=== PATIENT | male | born 1955 | race Caucasian/White ===

== ENCOUNTER 2023-05-02 16:22 | Observation (INO) ==
--- NOTE | 2023-05-02 16:26 | ED Triage Note ---
Date of Service May 02, 2023 History of Present Illness This patient was briefly evaluated while in triage. An abbreviated physical exam was performed. This patient is a 68-year-old Male who presents to the ED for evaluation of lightheaded, and left shoulder/chest pain since 1200 worse with walking pressure in abdomen slight SOB on and off x 5 days Physical Exam GENERAL: NAD CARDIOVASCULAR: RRR RESPIRATORY: CTA ABDOMEN: BS x 4. Nontender to palpation. Initial orders for labs and / or imaging were placed and patient was placed in the waiting area until a bed is available. Please see further documentation for the full ED course. MDM / Impression Impression Impression: Chest pain, Elevated troponin, Acute hyponatremia, Abnormal ECG
[2023-05-02] MEDS ORDERED: ASPIRIN CHEW 324 MG PO STA (16:27)
--- NOTE | 2023-05-02 17:32 | XRay Report ---
XR chest 2V PA/lateral CLINICAL HISTORY: Chest pain, nonspecific COMPARISON STUDY: Chest radiograph October 16, 2020. FINDINGS: Lung volumes are normal. Lungs are clear. There is no pneumothorax or pleural effusion. Car diac size is stable. Mediastinal contours are normal. There is no evidence for pulmonary edema. IMPRESSION: No acute cardiopulmonary findings. No change in appearance of the chest. ACT 112: Negative or not required by law. Electronically signed by: Morteza Larson M.D. 05/02/2023 5:31 PM
[2023-05-02 18:11] LABS: Basophils # (auto) 0.05 K/uL (0.00-0.20); Basophils % (auto) 0.5 %; Eosinophils # (auto) 0.29 K/uL (0.00-0.50); Eosinophils % (auto) 2.8 %; Hemoglobin 15.6 g/dl (14.0-18.0); Immature Granulocytes # (auto) 0.04 K/uL (0.01-0.20); Immature Granulocytes % (auto) 0.4 %; Lymphocytes % (auto) 16.4 %; Mean Corpuscular Hgb Conc 36.3 g/dL (32.0-36.0); Mean Corpuscular Volume 90.9 fL (80.0-100.0); Mean Platelet Volume 9.1 fL (9.4-12.4); Monocytes % (auto) 6.8 %; Neutrophils # (auto) 7.57 K/uL (1.40-6.50); Neutrophils % (auto) 73.1 %; Platelet Count 198 K/uL (130-400); RDW Standard Deviation 40.3 fL (36.4-46.3); Red Blood Count 4.73 M/uL (4.70-6.10); White Blood Count 10.35 K/ul (4.8-10.8)
[2023-05-02 18:35] LABS: Albumin Globulin Ratio 1.7 (0.9-2); Albumin Level 4.7 gm/dl (3.4-5.0); BUN Creatinine Ratio 15.3 (10-20); Bilirubin,Total 0.6 mg/dl (0.2-1.0); Est GFR (Non-African American) 88.9 ml/min; Globulin 2.7 gm/dl (2.5-4.0); Potassium 4.3 mmol/L (3.5-5.1); Total Protein 7.4 gm/dl (6.0-8.3)
[2023-05-02 18:40] LABS: Troponin I High Sensitivity 101.4 pg/ml (0-20)
[2023-05-02 18:45] LABS: Partial Thromboplastin Time 27.9 Seconds (21.0-31.0); Prothrombin Time 10.9 Seconds (9.0-12.0)
[2023-05-02] MEDS ORDERED: NITROGLYCERIN 2% OINTMENT 30GM TUBE EXT STA (19:05)
--- NOTE | 2023-05-02 19:05 | Emergency Department Note ---
Impression & Plan Chest pain, Elevated troponin, Acute hyponatremia, Abnormal ECG ED Provider Note INFORMANT: Patient ED PROVIDER(S): Heath Maldonado MD CHIEF COMPLAINT: Chest pain PLAN: Disposition: Admitted Outpatient prescription management: none Referral: None MEDICAL DECISION MAKING: Patient was in because of exertional chest pain. Work-up was initiated. He was found to have an unremarkable CBC and chemistry panel except for hyponatremia. Patient has no history of the same. He also was noted to have an unremarkable ECG but elevated cardiac troponin. In light of his exertional chest pain this is concerning. Patient had already taken aspirin today. He was mildly hypertensive. Nitropaste was ordered. Further management in the hospital will be necessary. Patient's chest x-ray was unremarkable. Consultation was made with Dr. Tirso Davis, [facility] hospitalist service. Case was discussed and d iagnostics were reviewed. Patient was evaluated in the ER and admitted for further management. We did discuss heparinization and he would like to see the patient first for management and further treatment. 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 Triage Nursing notes: reviewed and agree them. Vital Signs: reviewed and remarkable for no significant abnormalities Additional History obtained from: none Chronic Medical/Social Conditions affecting care: none Prior /Outside records reviewed: none Differential Diagnosis: Cardiac ischemia, aortic dissection, pulmonary embolism, pneumothorax, pneumonia, pericarditis, myocarditis, esophageal rupture, GERD, cholecystitis, pancreatitis, musculoskeletal, as well as other pathologies. Diagnostics, independently interpreted by me: ECG: Twelve-lead ECG reveals a normal sinus rhythm at 89 bpm. Inferior infarct and anterior infarct present. When compared to 16 October 2020 the inferior changes are new. No ST elevation.. Cardiac Monitoring: Cardiac monitoring ordered by me: The patient was placed on continuous cardiac monitoring and observed. It revealed a normal sinus rhythm at 77 beats per minute without ectopy or evidence of dysrhythmia. Medical decision rules: none Imaging studies: Chest x-ray. Findings: A chest x-ray was performed and revealed no pneumothorax, effusion, infiltrate, pulmonary edema, free air under the diaphragm, or wide mediastinum. Impression: No acute disease. HPI: The patient is a 68-year-old male who arrives for evaluation of exertional chest pain. Patient notes this is a going on for a few days. He noted some lightheadedness as well as pain going into the left shoulder and arm. Symptoms worsen with walking and are better with rest. He notes a discomfort in the stomach and some shortness of breath only with exertion. Currently he does not have any pain. He has no cardiac history. He did take 6 baby aspirin today. Pt denies LOC, headache, fevers, chills, diaphoresis, visual changes, neck pain, nausea, vomiting, abdominal pain, back pain, melena, hematochezia, urinary symptoms, numbness, weakness, lymphadenopathy, rash, or other complaints. PAST MEDICAL HISTORY: See Below, patient denies cardiac history. Mild hypertension PAST SURGICAL HISTORY: See Below, SOCIAL HISTORY: See Below, non-smoker HOME MEDICATIONS: See Below ALLERGIES: See Below VITALS: See Below PHYSICAL EXAMINATION: GENERAL: Awake, alert, well-appearing, in no distress HENT: Normocephalic, atraumatic. Oropharynx unremarkable. EYES: Normal conjunctiva. Sclera non-icteric. NECK: Inspection normal. Non-tender. Supple. No nuchal rigidity. FROM. No masses. RESPIRATORY: Clear to auscultation. No wheezes. No rales. Normal respiratory effort. CARDIAC: Normal rate. Normal rhythm. No murmurs. No rubs. Extremities warm and well perfused. Pulses equal. No JVD. GI: Soft, non-distended. No tenderness to palpation. No rebound or guarding. No masses. RECTAL: Deferred. MUSCULOSKELETAL: Atraumatic. Chest examination reveals no tenderness. The back is symmetrical on inspection without obvious abnormality. There is no CVA tenderness to palpation. No joint edema. LOWER EXTREMITIES: Calves are equal size bilaterally and non-tender. No edema. No discoloration. NEURO: Normal sensorium. No sensory or motor deficits noted. SKIN: No rash or jaundice noted. PROCEDURES: none CRITICAL CARE: none OBSERVATION NOTE: none Past Med/Surg History Medical History Waterman's palsy Obesity (BMI 35.0-39.9 without comorbidity) Social History Smoking Status: Never smoker Preferred Language: Slovak Current Living Situation: Family current occupational status: employed Feels Safe at Home: Yes Allergies Allergies Allergy/AdvReac Type Severity Reaction Status Date / Time No Known Allergies Allergy Mild Unverified 05/02/23 19:22 Home Meds Home Medications Medication Instructions Recorded Confirmed cholecalciferol (vitamin D3) 50 50 mcg PO DAILY 05/02/23 05/02/23 mcg (2,000 unit) capsule (Vitamin D3) [id number] 1 cap PO DAILY 05/02/23 05/02/23 oil 350 mg- 400 mg capsule Results & Data (ED) Vital Signs Vital Signs - 24 hr 05/02/23 16:24 05/02/23 18:54 05/02/23 18:54 Temperature 36.5 C Temperature Source Temporal Artery Scan Pulse Rate 95 H Pulse Rate [Apical] 88 Pulse Rhythm Regular Respiratory Rate 20 25 H Respiratory Effort / Characteristics Non-Labored Spontaneous Respiratory Depth Normal Blood Pressure 158/88 H Blood Pressure [Left Arm] 169/92 H Blood Pressure Mean 111 Blood Pressure Mean [Left Arm] 117 Blood Pressure Position [Left Arm] Pulse Oximetry 97 97 97 Oxygen Delivery Method Room Air Room Air Room Air Sepsis Recent Fever Within 48 Hours No Sepsis New/Unexplained Change in Mental Status No Sepsis Action Taken by Nursing No Action Required 05/02/23 18:54 05/02/23 18:56 05/02/23 18:54 Temperature Temperature Source Pulse Rate 86 Pulse Rate [Apical] Pulse Rhythm Respiratory Rate Respiratory Effort / Characteristics SOB on Exertion Respiratory Depth Blood Pressure Blood Pressure [Left Arm] Blood Pressure Mean Blood Pressure Mean [Left Arm] Blood Pressure Position [Left Arm] Pulse Oximetry 97 Oxygen Delivery Method Room Air Sepsis Recent Fever Within 48 Hours Sepsis New/Unexplained Change in Mental Status Sepsis Action Taken by Nursing 05/02/23 20:00 Temperature Temperature Source Pulse Rate Pulse Rate [Apical] 77 Pulse Rhythm Respiratory Rate 18 Respiratory Effort / Characteristics Respiratory Depth Blood Pressure Blood Pressure [Left Arm] 146/82 H Blood Pressure Mean Blood Pressure Mean [Left Arm] 103 Blood Pressure Position [Left Arm] Sitting Pulse Oximetry 97 Oxygen Delivery Method Room Air Sepsis Recent Fever Within 48 Hours Sepsis New/Unexplained Change in Mental Status Sepsis Action Taken by Nursing Laboratory Data 05/02/23 17:55 05/02/23 17:55 Lab Results 05/02/23 05/02/23 05/02/23 Range/Units 17:55 17:55 17:55 WBC 10.35 (4.8-10.8) K/ul RBC 4.73 (4.70-6.10) M/uL Hgb 15.6 (14.0-18.0) g/dl Hct 43.0 (42.0-52.0) % MCV 90.9 (80.0-100.0) fL MCH 33.0 (25.0-34.0) pg MCHC 36.3 H (32.0-36.0) g/dL RDW Std Deviation 40.3 (36.4-46.3) fL RDW Coeff of Derrick 12.0 (11.5-14.5) % Plt Count 198 (130-400) K/uL MPV 9.1 L (9.4-12.4) fL Immature Gran % (Auto) 0.4 % Neut % (Auto) 73.1 % Lymph % (Auto) 16.4 % [place] % (Auto) 6.8 % Eos % (Auto) 2.8 % Baso % (Auto) 0.5 % Neut # (Auto) 7.57 H (1.40-6.50) K/uL Lymph # (Auto) 1.70 (1.20-3.40) K/uL [place] # (Auto) 0.70 H (0.11-0.59) K/uL Eos # (Auto) 0.29 (0.00-0.50) K/uL Baso # (Auto) 0.05 (0.00-0.20) K/uL Immature Gran # (Auto) 0.04 (0.01-0.20) K/uL PT 10.9 (9.0-12.0) Seconds INR 1.0 (0.9-1.1) APTT 27.9 (21.0-31.0) Seconds PTT Ratio 1.0 Sodium 127 L (136-145) mmol/L Potassium 4.3 (3.5-5.1) mmol/L Chloride 92 L (98-107) mmol/L Carbon Dioxide 28 (21-32) mmol/L Anion Gap 7 (3-11) BUN 13 (6-23) mg/dl Creatinine 0.85 (0.6-1.4) mg/dl Est Cr Clr Drug Dosing 82.0 ml/min Est GFR ( Amer) 103.0 ml/min Est GFR (Non-Af Amer) 88.9 ml/min BUN/Creatinine Ratio 15.3 (10-20) Glucose 111 H (70-99(Fasting)) mg/dl Osmolality (280-300) mOsm/kg Calcium 9.0 (8.6-10.3) mg/dl Magnesium (1.7-2.4) mg/dl Total Bilirubin 0.6 (0.2-1.0) mg/dl AST 20 (13-39) U/L ALT 24 (7-52) U/L Alkaline Phosphatase 52 (34-104) U/L Troponin I High Sens 101.4 H* (0-20) pg/ml Total Protein 7.4 (6.0-8.3) gm/dl Albumin 4.7 (3.4-5.0) gm/dl Globulin 2.7 (2.5-4.0) gm/dl Albumin/Globulin Ratio 1.7 (0.9-2) TSH (0.300-4.500) uIu/ml 05/02/23 05/02/23 Range/Units 17:55 20:04 WBC (4.8-10.8) K/ul RBC (4.70-6.10) M/uL Hgb (14.0-18.0) g/dl Hct (42.0-52.0) % MCV (80.0-100.0) fL MCH (25.0-34.0) pg MCHC (32.0-36.0) g/dL RDW Std Deviation (36.4-46.3) fL RDW Coeff of Derrick (11.5-14.5) % Plt Count (130-400) K/uL MPV (9.4-12.4) fL Immature Gran % (Auto) % Neut % (Auto) % Lymph % (Auto) % [place] % (Auto) % Eos % (Auto) % Baso % (Auto) % Neut # (Auto) (1.40-6.50) K/uL Lymph # (Auto) (1.20-3.40) K/uL [place] # (Auto) (0.11-0.59) K/uL Eos # (Auto) (0.00-0.50) K/uL Baso # (Auto) (0.00-0.20) K/uL Immature Gran # (Auto) (0.01-0.20) K/uL PT (9.0-12.0) Seconds INR (0.9-1.1) APTT (21.0-31.0) Seconds PTT Ratio Sodium (136-145) mmol/L Potassium (3.5-5.1) mmol/L Chloride (98-107) mmol/L Carbon Dioxide (21-32) mmol/L Anion Gap (3-11) BUN (6-23) mg/dl Creatinine (0.6-1.4) mg/dl Est Cr Clr Drug Dosing ml/min Est GFR ( Amer) ml/min Est GFR (Non-Af Amer) ml/min BUN/Creatinine Ratio (10-20) Glucose (70-99(Fasting)) mg/dl Osmolality 269 L (280-300) mOsm/kg Calcium (8.6-10.3) mg/dl Magnesium 1.8 (1.7-2.4) mg/dl Total Bilirubin (0.2-1.0) mg/dl AST (13-39) U/L ALT (7-52) U/L Alkaline Phosphatase (34-104) U/L Troponin I High Sens 136.0 H* D (0-20) pg/ml Total Protein (6.0-8.3) gm/dl Albumin (3.4-5.0) gm/dl Globulin (2.5-4.0) gm/dl Albumin/Globulin Ratio (0.9-2) TSH 9.871 H (0.300-4.500) uIu/ml Administered Medications Sodium Chloride (Nss) 1,000 mls @ 50 mls/hr IV .Q20H ONE Stop: 05/03/23 15:29 Last Admin: 05/02/23 21:12 Dose: 50 mls/hr Documented By: QGV Discontinued Medications Acetaminophen (Acetaminophen 325 Mg Tab) 650 mg PO NOW STA Stop: 05/02/23 20:04 Last Admin: 05/02/23 21:11 Dose: 650 mg Documented By: QGV Aspirin (Aspirin Chew 324 Mg) 324 mg PO NOW STA Stop: 05/02/23 16:28 Last Admin: 05/02/23 19:00 Dose: Not Given Documented By: ML Nitroglycerin (Nitroglycerin 2% Ointment 30gm Tube) 0.5 inch EXT NOW STA Stop: 05/02/23 19:06 Last Admin: 05/02/23 19:12 Dose: 0.5 inch Documented By: QGV Imaging Data Radiologist's Impression: Chest X-Ray 05/02/23 16:27 XR chest 2V PA/lateral CLINICAL HISTORY: Chest pain, nonspecific COMPARISON STUDY: Chest radiograph October 16, 2020. FINDINGS: Lung volumes are normal. Lungs are clear. There is no pneumothorax or pleural effusion. Cardiac size is stable. Mediastinal contours are normal. There is no evidence for pulmonary edema. IMPRESSION: No acute cardiopulmonary findings. No change in appearance of the chest. ACT 112: Negative or not required by law. Electronically signed by: Morteza Larson M.D. 05/02/2023 5:31 PM Discharge Plan Visit Data Chief Complaint: Chest Pain Stated Complaint: HYPERTENSION, DIZZINESS ED Provider: Heath Maldonado Discharge Problem: Chest pain, Elevated troponin, Acute hyponatremia, Abnormal ECG Forms Stand Alone Forms: [facility] Prescriptions Prescriptions: No Action cholecalciferol (vitamin D3) [Vitamin D3] 50 mcg (2,000 unit) Capsule 50 mcg PO DAILY [place] 3 350-400 mg Capsule 1 cap PO DAILY Referrals Referrals: Ella Archuleta MD [Primary Care Provider] -
[2023-05-02] MEDS ORDERED: SODIUM CHLORIDE 0.9% 1,000 ML IV ONE (19:30)
[2023-05-02] MEDS ORDERED: ACETAMINOPHEN 325 MG TAB PO STA (20:03)
--- NOTE | 2023-05-02 20:13 | History & Physical Report ---
Date of Service May 02, 2023 Assessment & Plan (1) Chest pain: Plan: Possibly from elevated BP Possible ACS given troponin elevation and relief with nitroglycerin Hyponatremia, possible SIADH given patient account of daily water intake of 2.5 L hyperlipidemia, patient currently not on maintenance medications SHERMAN status post surgery New onset hypothyroidism past tobacco abuse PCU Aspirin for CAD prevention until ACS ruled out Follow troponin TTE, Cardiology consult Re: Chest pain N.p.o. after midnight in anticipation of ischemic work-up. Careful correction of sodium with NSS, hyponatremia work-up May need fluid restriction May need Nephrology evaluation Initiate levothyroxine, recheck TSH next month DVT prophylaxis. Lovenox subcu Full code Text document was generated using [employer] voice recognition software. It may contain grammatical or spelling errors. Kindly contact undersigned for clarification of any documentation item in question. History of Present Illness Chief Complaint: Chest pain Primary Care Provider: Ella Archuleta MD History obtained from patient and records. Medical history significant for hyperlipidemia, SHERMAN status post surgery, history of Waterman's palsy, past tobacco abuse. Few days ago, patient noted intermittent substernal pressure somewhat squeezing with some radiation to the left arm. Some lightheadedness without headache symptoms. Somewhat worse on exertion. No cough symptoms. Some neck pain. No recent trauma. Patient took some aspirin today with persistent symptoms. Chest discomfort improved with Nitropaste administration at the ER. Highest SBP at the ER 160s. 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 Allergies Allergy/AdvReac Type Severity Reaction Status Date / Time No Known Allergies Allergy Mild Unverified 05/02/23 19:22 Home Medications Medication Instructions Recorded Confirmed Type cholecalciferol (vitamin D3) 50 50 mcg PO DAILY 05/02/23 05/02/23 History mcg (2,000 unit) capsule (Vitamin D3) [id number] 1 cap PO DAILY 05/02/23 05/02/23 History oil 350 mg- 400 mg capsule Past Med/Surg History Medical History Waterman's palsy Obesity (BMI 35.0-39.9 without comorbidity) Social History Smoking Status: Never smoker Preferred Language: Hungarian Communication Ability: Effective Current Living Situation: Family current occupational status: employed Feels Safe at Home: Yes Assistive Devices: None Review of Systems Review of Systems: As per HPI, all other systems reviewed and negative Physical Exam Physical Exam: GENERAL: Comfortable, pleasant, obese, no respiratory distress SKIN: Normal color, warm HEENT: Bespectacled, [place] palpebral conjunctivae, no ptosis, dry buccal mucosa NECK : Supple, short neck, no tenderness CHEST : CTA, no tenderness HEART : RRR, no obvious murmurs ABDOMEN: Some distention, nontender EXTREMITIES : No LE swelling/tenderness, no other conspicuous deformities noted NEUROLOGIC : Coherent, no facial asymmetry, no other gross focality Results & Data Results & Data Vital Signs (Past 12 Hours) Vital Signs Temp Pulse Pulse Resp BP BP Pulse Ox 05/02/23 18:54 86 05/02/23 18:56 97 05/02/23 18:54 97 05/02/23 18:54 88 25 H 169/92 H 97 05/02/23 16:24 36.5 C 95 H 20 158/88 H 97 O2 Del Method 05/02/23 18:54 05/02/23 18:56 Room Air 05/02/23 18:54 Room Air 05/02/23 18:54 Room Air 05/02/23 16:24 Room Air Laboratory Results Laboratory Results WBC 10.35 K/ul (4.8-10.8) 05/02/23 17:55 RBC 4.73 M/uL (4.70-6.10) 05/02/23 17:55 Hgb 15.6 g/dl (14.0-18.0) 05/02/23 17:55 Hct 43.0 % (42.0-52.0) 05/02/23 17:55 MCV 90.9 fL (80.0-100.0) 05/02/23 17:55 MCH 33.0 pg (25.0-34.0) 05/02/23 17:55 MCHC 36.3 g/dL (32.0-36.0) H 05/02/23 17:55 RDW Std Deviation 40.3 fL (36.4-46.3) 05/02/23 17:55 RDW Coeff of Derrick 12.0 % (11.5-14.5) 05/02/23 17:55 Plt Count 198 K/uL (130-400) 05/02/23 17:55 MPV 9.1 fL (9.4-12.4) L 05/02/23 17:55 Immature Gran % (Auto) 0.4 % 05/02/23 17:55 Neut % (Auto) 73.1 % 05/02/23 17:55 Lymph % (Auto) 16.4 % 05/02/23 17:55 [place] % (Auto) 6.8 % 05/02/23 17:55 Eos % (Auto) 2.8 % 05/02/23 17:55 Baso % (Auto) 0.5 % 05/02/23 17:55 Neut # (Auto) 7.57 K/uL (1.40-6.50) H 05/02/23 17:55 Lymph # (Auto) 1.70 K/uL (1.20-3.40) 05/02/23 17:55 [place] # (Auto) 0.70 K/uL (0.11-0.59) H 05/02/23 17:55 Eos # (Auto) 0.29 K/uL (0.00-0.50) 05/02/23 17:55 Baso # (Auto) 0.05 K/uL (0.00-0.20) 05/02/23 17:55 Immature Gran # (Auto) 0.04 K/uL (0.01-0.20) 05/02/23 17:55 PT 10.9 Seconds (9.0-12.0) 05/02/23 17:55 INR 1.0 (0.9-1.1) 05/02/23 17:55 APTT 27.9 Seconds (21.0-31.0) 05/02/23 17:55 PTT Ratio 1.0 05/02/23 17:55 Sodium 127 mmol/L (136-145) L 05/02/23 17:55 Potassium 4.3 mmol/L (3.5-5.1) 05/02/23 17:55 Chloride 92 mmol/L (98-107) L 05/02/23 17:55 Carbon Dioxide 28 mmol/L (21-32) 05/02/23 17:55 Anion Gap 7 (3-11) 05/02/23 17:55 BUN 13 mg/dl (6-23) 05/02/23 17:55 Creatinine 0.85 mg/dl (0.6-1.4) 05/02/23 17:55 Est Cr Clr Drug Dosing 82.0 ml/min 05/02/23 17:55 Est GFR ( Amer) 103.0 ml/min 05/02/23 17:55 Est GFR (Non-Af Amer) 88.9 ml/min 05/02/23 17:55 BUN/Creatinine Ratio 15.3 (10-20) 05/02/23 17:55 Glucose 111 mg/dl (70-99(Fasting)) H 05/02/23 17:55 Calcium 9.0 mg/dl (8.6-10.3) 05/02/23 17:55 Total Bilirubin 0.6 mg/dl (0.2-1.0) 05/02/23 17:55 AST 20 U/L (13-39) 05/02/23 17:55 ALT 24 U/L (7-52) 05/02/23 17:55 Alkaline Phosphatase 52 U/L (34-104) 05/02/23 17:55 Troponin I High Sens 101.4 pg/ml (0-20) H* 05/02/23 17:55 Total Protein 7.4 gm/dl (6.0-8.3) 05/02/23 17:55 Albumin 4.7 gm/dl (3.4-5.0) 05/02/23 17:55 Globulin 2.7 gm/dl (2.5-4.0) 05/02/23 17:55 Albumin/Globulin Ratio 1.7 (0.9-2) 05/02/23 17:55 Impressions Chest X-Ray 05/02/23 16:27 XR chest 2V PA/lateral CLINICAL HISTORY: Chest pain, nonspecific COMPARISON STUDY: Chest radiograph October 16, 2020. FINDINGS: Lung volumes are normal. Lungs are clear. There is no pneumothorax or pleural effusion. Cardiac size is stable. Mediastinal contours are normal. There is no evidence for pulmonary edema. IMPRESSION: No acute cardiopulmonary findings. No change in appearance of the chest. ACT 112: Negative or not required by law. Electronically signed by: Morteza Larson M.D. 05/02/2023 5:31 PM Diagnostic Findings EKG as per my interpretation : Rate 90, NSR, LAD, LAFB, no ischemia
[2023-05-02] MEDS ORDERED: oxyCODONE HCL IR 5 MG TAB (IMMEDIATE RELEASE) PO PRN (20:16)
[2023-05-02] MEDS ORDERED: LORazepam 0.5 MG TAB PO PRN (20:16)
[2023-05-02] MEDS ORDERED: MoRPHine SULFATE 4 MG/ML 1 ML CARP\\VIAL IV PRN (20:16)
[2023-05-02] MEDS ORDERED: PROMETHAZINE HCL 12.5 MG in SODIUM CHLORIDE 0.9% 50 ML IV PRN (20:16)
[2023-05-02 21:13] LABS: Magnesium 1.8 mg/dl (1.7-2.4)
[2023-05-02 21:29] LABS: Thyroid Stimulating Hormone 9.871 uIu/ml (0.300-4.500)
[2023-05-02 22:12] LABS: Appearance Urine Clear (Clear); Bilirubin Urine Negative (Negative); Blood Urine Negative (Negative); Color Urine Yellow; Glucose Urine UA Negative (Negative); Ketones Urine Negative (Negative); Leukocyte Esterase Urine Negative (Negative); Nitrite Urine Negative (Negative); Protein Urine Negative (Negative); Specific Gravity Urine 1.005 (1.000-1.030); Urobilinogen Urine Negative (Negative)
[2023-05-02] MEDS ORDERED: NITROGLYCERIN SL 0.4 MG/TAB TAB SL PRN (22:35)
[2023-05-02] MEDS ORDERED: ACETAMINOPHEN 325 MG TAB PO PRN (22:35)
[2023-05-02 23:39] LABS: T4 Free Thyroxine 0.49 ng/dl (0.61-1.60)
[2023-05-03 01:35] LABS: Basophils # (auto) 0.03 K/uL (0.00-0.20); Basophils % (auto) 0.4 %; Eosinophils # (auto) 0.32 K/uL (0.00-0.50); Eosinophils % (auto) 4.3 %; Hematocrit (blood only) 37.5 % (42.0-52.0); Hemoglobin 13.8 g/dl (14.0-18.0); Immature Granulocytes # (auto) 0.02 K/uL (0.01-0.20); Immature Granulocytes % (auto) 0.3 %; Lymphocytes # (auto) 2.03 K/uL (1.20-3.40); Mean Corpuscular Hemoglobin 33.1 pg (25.0-34.0); Mean Corpuscular Hgb Conc 36.8 g/dL (32.0-36.0); Mean Corpuscular Volume 89.9 fL (80.0-100.0); Mean Platelet Volume 9.3 fL (9.4-12.4); Monocytes # (auto) 0.74 K/uL (0.11-0.59); Monocytes % (auto) 9.9 %; Neutrophils # (auto) 4.37 K/uL (1.40-6.50); Neutrophils % (auto) 58.1 %; Platelet Count 181 K/uL (130-400); RDW Coefficient of Variation 11.9 % (11.5-14.5); RDW Standard Deviation 39.1 fL (36.4-46.3); Red Blood Count 4.17 M/uL (4.70-6.10); White Blood Count 7.51 K/ul (4.8-10.8)
[2023-05-03 01:56] LABS: BUN Creatinine Ratio 13.8 (10-20); Calcium 8.6 mg/dl (8.6-10.3); Chol HDL Ratio 6.5 (0-5); Creatinine Clr Calc Pharmacy 87.2 ml/min; Est GFR (African American) 105.6 ml/min; Est GFR (Non-African American) 91.1 ml/min; Potassium 3.8 mmol/L (3.5-5.1)
[2023-05-03] MEDS ORDERED: MAGNESIUM SULFATE / D5W 1 GM/100 ML BAG IV ONE (01:56)
[2023-05-03 02:07] LABS: Troponin I High Sensitivity 100.2 pg/ml (0-20)
[2023-05-03] MEDS ORDERED: ALBUMIN 25% 25 GM/100 ML VIAL IV ONE (03:08)
--- NOTE | 2023-05-03 08:46 | Hospitalist Progress Note ---
Date of Service May 03, 2023 Assessment & Plan (1) Chest pain: Plan: Possibly from elevated BP Possible ACS given troponin elevation and relief with nitroglycerin NSTEMI PCU Echo LV is normal in size. Mild concentric LVH. The basal septum is thickened and angulated consistent with sigmoid septum. LV wall motion is normal. EF 60 to 65%. There is no significant valvular disease. Cardiology consulted -> plan for cardiac cath Hyponatremia, possible SIADH given patient account of daily water intake of 2.5 L Sodium now 133 (from 129) Careful correction of sodium with NSS, hyponatremia work-up May need fluid restriction May need Nephrology evaluation Cont. to monitor Hyperlipidemia, patient currently not on maintenance medications SHERMAN status post surgery New onset hypothyroidism, TSH 9.87, Initiate levothyroxine, recheck TSH next month Past tobacco abuse DVT prophylaxis. Lovenox subcu Full code Admission and Anticipated Discharge Date Admission Date: May 02, 2023 Subjective Pt seen in follow up of chest pain, elev. troponin Pt took ASA, in ED s/p nitropaste Currently laying in bed, in no acute distress, denies any more chest pain Currently feeling comfortable, no shortness of breath either , no dizziness or palpitations Seen by cardiology, plan for cardiac cath Review of Systems Review of Systems: All systems reviewed & are unremarkable except as noted in Subjective Physical Exam Physical Exam: GENERAL: obese M in NAD SKIN: Normal color, warm HEENT: NC/AT, [place] palpebral conjunctivae NECK : Supple, no tenderness CHEST : CTAB, no tenderness HEART : RRR, no obvious murmurs ABDOMEN: Some distention, nontender, soft, + bowel sounds EXTREMITIES : No LE swelling/tenderness, no other conspicuous deformities noted NEUROLOGIC : Coherent, no facial asymmetry, speech fluent, answers appropriately, moves extremities Results & Data Results & Data Vital Signs (Past 12 Hours) Vital Signs Pulse Pulse Resp BP BP Pulse Ox O2 Del Method 05/03/23 07:00 77 16 97 Room Air 05/03/23 06:00 62 22 133/47 L 96 Room Air 05/03/23 05:02 61 16 95/53 L 95 Room Air 05/03/23 04:00 73 19 151/71 H 96 Room Air 05/03/23 03:00 57 L 14 93/47 L 97 Room Air 05/03/23 02:00 57 L 14 126/64 95 Room Air 05/03/23 01:00 58 L 16 106/64 97 Room Air 05/03/23 00:00 62 15 111/48 L 95 Room Air 05/02/23 23:00 65 16 112/59 L 94 Room Air 05/02/23 22:35 64 18 123/74 95 Room Air 05/02/23 22:00 70 18 135/69 95 Room Air Laboratory Results 05/03/23 05/03/23 05/03/23 Range/Units 06:44 06:44 01:19 WBC (4.8-10.8) K/ul RBC (4.70-6.10) M/uL Hgb (14.0-18.0) g/dl Hct (42.0-52.0) % MCV (80.0-100.0) fL MCH (25.0-34.0) pg MCHC (32.0-36.0) g/dL RDW Std Deviation (36.4-46.3) fL RDW Coeff of Derrick (11.5-14.5) % Plt Count (130-400) K/uL MPV (9.4-12.4) fL Immature Gran % (Auto) % Neut % (Auto) % Lymph % (Auto) % [place] % (Auto) % Eos % (Auto) % Baso % (Auto) % Neut # (Auto) (1.40-6.50) K/uL Lymph # (Auto) (1.20-3.40) K/uL [place] # (Auto) (0.11-0.59) K/uL Eos # (Auto) (0.00-0.50) K/uL Baso # (Auto) (0.00-0.20) K/uL Immature Gran # (Auto) (0.01-0.20) K/uL PT (9.0-12.0) Seconds INR (0.9-1.1) APTT (21.0-31.0) Seconds PTT Ratio Sodium 132 L 129 L (136-145) mmol/L Potassium 3.8 (3.5-5.1) mmol/L Chloride 98 (98-107) mmol/L Carbon Dioxide 27 (21-32) mmol/L Anion Gap 4 (3-11) BUN 11 (6-23) mg/dl Creatinine 0.80 (0.6-1.4) mg/dl Est Cr Clr Drug Dosing 87.2 ml/min Est GFR ( Amer) 105.6 ml/min Est GFR (Non-Af Amer) 91.1 ml/min BUN/Creatinine Ratio 13.8 (10-20) Glucose 108 H (70-99(Fasting)) mg/dl Osmolality (280-300) mOsm/kg Calcium 8.6 (8.6-10.3) mg/dl Magnesium (1.7-2.4) mg/dl Total Bilirubin (0.2-1.0) mg/dl AST (13-39) U/L ALT (7-52) U/L Alkaline Phosphatase (34-104) U/L Troponin I High Sens 53.9 H* D 100.2 H* D (0-20) pg/ml Total Protein (6.0-8.3) gm/dl Albumin (3.4-5.0) gm/dl Globulin (2.5-4.0) gm/dl Albumin/Globulin Ratio (0.9-2) Triglycerides 165 H (0-150) mg/dl Cholesterol 208 H (0-200) mg/dl LDL Cholesterol, Calc 143 mg/dl VLDL Cholesterol, Calc 33 H (0-30) mg/dl HDL Cholesterol 32 mg/dl Cholesterol/HDL Ratio 6.5 H (0-5) TSH (0.300-4.500) uIu/ml Free T4 (0.61-1.60) ng/dl Urine Color Urine Appearance (Clear) Urine pH (4.5-7.5) Ur Specific [employer] (1.000-1.030) Urine Protein (Negative) Urine Glucose (UA) (Negative) Urine Ketones (Negative) Urine Blood (Negative) Urine Nitrite (Negative) Urine Bilirubin (Negative) Urine Urobilinogen (Negative) Ur Leukocyte Esterase (Negative) Urine Osmolality (500-800) mOsm/kg Ur Random Sodium mmol/L 05/03/23 05/02/23 05/02/23 Range/Units 01:19 21:33 21:33 WBC 7.51 (4.8-10.8) K/ul RBC 4.17 L (4.70-6.10) M/uL Hgb 13.8 L (14.0-18.0) g/dl Hct 37.5 L (42.0-52.0) % MCV 89.9 (80.0-100.0) fL MCH 33.1 (25.0-34.0) pg MCHC 36.8 H (32.0-36.0) g/dL RDW Std Deviation 39.1 (36.4-46.3) fL RDW Coeff of Derrick 11.9 (11.5-14.5) % Plt Count 181 (130-400) K/uL MPV 9.3 L (9.4-12.4) fL Immature Gran % (Auto) 0.3 % Neut % (Auto) 58.1 % Lymph % (Auto) 27.0 % [place] % (Auto) 9.9 % Eos % (Auto) 4.3 % Baso % (Auto) 0.4 % Neut # (Auto) 4.37 (1.40-6.50) K/uL Lymph # (Auto) 2.03 (1.20-3.40) K/uL [place] # (Auto) 0.74 H (0.11-0.59) K/uL Eos # (Auto) 0.32 (0.00-0.50) K/uL Baso # (Auto) 0.03 (0.00-0.20) K/uL Immature Gran # (Auto) 0.02 (0.01-0.20) K/uL PT (9.0-12.0) Seconds INR (0.9-1.1) APTT (21.0-31.0) Seconds PTT Ratio Sodium (136-145) mmol/L Potassium (3.5-5.1) mmol/L Chloride (98-107) mmol/L Carbon Dioxide (21-32) mmol/L Anion Gap (3-11) BUN (6-23) mg/dl Creatinine (0.6-1.4) mg/dl Est Cr Clr Drug Dosing ml/min Est GFR ( Amer) ml/min Est GFR (Non-Af Amer) ml/min BUN/Creatinine Ratio (10-20) Glucose (70-99(Fasting)) mg/dl Osmolality (280-300) mOsm/kg Calcium (8.6-10.3) mg/dl Magnesium (1.7-2.4) mg/dl Total Bilirubin (0.2-1.0) mg/dl AST (13-39) U/L ALT (7-52) U/L Alkaline Phosphatase (34-104) U/L Troponin I High Sens (0-20) pg/ml Total Protein (6.0-8.3) gm/dl Albumin (3.4-5.0) gm/dl Globulin (2.5-4.0) gm/dl Albumin/Globulin Ratio (0.9-2) Triglycerides (0-150) mg/dl Cholesterol (0-200) mg/dl LDL Cholesterol, Calc mg/dl VLDL Cholesterol, Calc (0-30) mg/dl HDL Cholesterol mg/dl Cholesterol/HDL Ratio (0-5) TSH (0.300-4.500) uIu/ml Free T4 (0.61-1.60) ng/dl Urine Color Urine Appearance (Clear) Urine pH (4.5-7.5) Ur Specific [employer] (1.000-1.030) Urine Protein (Negative) Urine Glucose (UA) (Negative) Urine Ketones (Negative) Urine Blood (Negative) Urine Nitrite (Negative) Urine Bilirubin (Negative) Urine Urobilinogen (Negative) Ur Leukocyte Esterase (Negative) Urine Osmolality 131 L (500-800) mOsm/kg Ur Random Sodium 26 mmol/L 05/02/23 05/02/23 05/02/23 Range/Units 21:33 20:04 17:55 WBC (4.8-10.8) K/ul RBC (4.70-6.10) M/uL Hgb (14.0-18.0) g/dl Hct (42.0-52.0) % MCV (80.0-100.0) fL MCH (25.0-34.0) pg MCHC (32.0-36.0) g/dL RDW Std Deviation (36.4-46.3) fL RDW Coeff of Derrick (11.5-14.5) % Plt Count (130-400) K/uL MPV (9.4-12.4) fL Immature Gran % (Auto) % Neut % (Auto) % Lymph % (Auto) % [place] % (Auto) % Eos % (Auto) % Baso % (Auto) % Neut # (Auto) (1.40-6.50) K/uL Lymph # (Auto) (1.20-3.40) K/uL [place] # (Auto) (0.11-0.59) K/uL Eos # (Auto) (0.00-0.50) K/uL Baso # (Auto) (0.00-0.20) K/uL Immature Gran # (Auto) (0.01-0.20) K/uL PT (9.0-12.0) Seconds INR (0.9-1.1) APTT (21.0-31.0) Seconds PTT Ratio Sodium (136-145) mmol/L Potassium (3.5-5.1) mmol/L Chloride (98-107) mmol/L Carbon Dioxide (21-32) mmol/L Anion Gap (3-11) BUN (6-23) mg/dl Creatinine (0.6-1.4) mg/dl Est Cr Clr Drug Dosing ml/min Est GFR ( Amer) ml/min Est GFR (Non-Af Amer) ml/min BUN/Creatinine Ratio (10-20) Glucose (70-99(Fasting)) mg/dl Osmolality 269 L (280-300) mOsm/kg Calcium (8.6-10.3) mg/dl Magnesium 1.8 (1.7-2.4) mg/dl Total Bilirubin (0.2-1.0) mg/dl AST (13-39) U/L ALT (7-52) U/L Alkaline Phosphatase (34-104) U/L Troponin I High Sens 136.0 H* D (0-20) pg/ml Total Protein (6.0-8.3) gm/dl Albumin (3.4-5.0) gm/dl Globulin (2.5-4.0) gm/dl Albumin/Globulin Ratio (0.9-2) Triglycerides (0-150) mg/dl Cholesterol (0-200) mg/dl LDL Cholesterol, Calc mg/dl VLDL Cholesterol, Calc (0-30) mg/dl HDL Cholesterol mg/dl Cholesterol/HDL Ratio (0-5) TSH 9.871 H (0.300-4.500) uIu/ml Free T4 0.49 L (0.61-1.60) ng/dl Urine Color Yellow Urine Appearance Clear (Clear) Urine pH 7.0 (4.5-7.5) Ur Specific [employer] 1.005 (1.000-1.030) Urine Protein Negative (Negative) Urine Glucose (UA) Negative (Negative) Urine Ketones Negative (Negative) Urine Blood Negative (Negative) Urine Nitrite Negative (Negative) Urine Bilirubin Negative (Negative) Urine Urobilinogen Negative (Negative) Ur Leukocyte Esterase Negative (Negative) Urine Osmolality (500-800) mOsm/kg Ur Random Sodium mmol/L 05/02/23 05/02/23 05/02/23 Range/Units 17:55 17:55 17:55 WBC 10.35 (4.8-10.8) K/ul RBC 4.73 (4.70-6.10) M/uL Hgb 15.6 (14.0-18.0) g/dl Hct 43.0 (42.0-52.0) % MCV 90.9 (80.0-100.0) fL MCH 33.0 (25.0-34.0) pg MCHC 36.3 H (32.0-36.0) g/dL RDW Std Deviation 40.3 (36.4-46.3) fL RDW Coeff of Derrick 12.0 (11.5-14.5) % Plt Count 198 (130-400) K/uL MPV 9.1 L (9.4-12.4) fL Immature Gran % (Auto) 0.4 % Neut % (Auto) 73.1 % Lymph % (Auto) 16.4 % [place]bert % (Auto) 6.8 % Eos % (Auto) 2.8 % Baso % (Auto) 0.5 % Neut # (Auto) 7.57 H (1.40-6.50) K/uL Lymph # (Auto) 1.70 (1.20-3.40) K/uL [place] # (Auto) 0.70 H (0.11-0.59) K/uL Eos # (Auto) 0.29 (0.00-0.50) K/uL Baso # (Auto) 0.05 (0.00-0.20) K/uL Immature Gran # (Auto) 0.04 (0.01-0.20) K/uL PT 10.9 (9.0-12.0) Seconds INR 1.0 (0.9-1.1) APTT 27.9 (21.0-31.0) Seconds PTT Ratio 1.0 Sodium 127 L (136-145) mmol/L Potassium 4.3 (3.5-5.1) mmol/L Chloride 92 L (98-107) mmol/L Carbon Dioxide 28 (21-32) mmol/L Anion Gap 7 (3-11) BUN 13 (6-23) mg/dl Creatinine 0.85 (0.6-1.4) mg/dl Est Cr Clr Drug Dosing 82.0 ml/min Est GFR ( Amer) 103.0 ml/min Est GFR (Non-Af Amer) 88.9 ml/min BUN/Creatinine Ratio 15.3 (10-20) Glucose 111 H (70-99(Fasting)) mg/dl Osmolality (280-300) mOsm/kg Calcium 9.0 (8.6-10.3) mg/dl Magnesium (1.7-2.4) mg/dl Total Bilirubin 0.6 (0.2-1.0) mg/dl AST 20 (13-39) U/L ALT 24 (7-52) U/L Alkaline Phosphatase 52 (34-104) U/L Troponin I High Sens 101.4 H* (0-20) pg/ml Total Protein 7.4 (6.0-8.3) gm/dl Albumin 4.7 (3.4-5.0) gm/dl Globulin 2.7 (2.5-4.0) gm/dl Albumin/Globulin Ratio 1.7 (0.9-2) Triglycerides (0-150) mg/dl Cholesterol (0-200) mg/dl LDL Cholesterol, Calc mg/dl VLDL Cholesterol, Calc (0-30) mg/dl HDL Cholesterol mg/dl Cholesterol/HDL Ratio (0-5) TSH (0.300-4.500) uIu/ml Free T4 (0.61-1.60) ng/dl Urine Color Urine Appearance (Clear) Urine pH (4.5-7.5) Ur Specific [employer] (1.000-1.030) Urine Protein (Negative) Urine Glucose (UA) (Negative) Urine Ketones (Negative) Urine Blood (Negative) Urine Nitrite (Negative) Urine Bilirubin (Negative) Urine Urobilinogen (Negative) Ur Leukocyte Esterase (Negative) Urine Osmolality (500-800) mOsm/kg Ur Random Sodium mmol/L Medications Administered Current Inpatient Medications Acetaminophen (Acetaminophen 325 Mg Tab) 650 mg PO Q4H PRN PRN Reason: Pain or Fever Stop: 06/01/23 22:34 Aspirin (Aspirin 81 Mg Ectab) 81 mg PO DAILY BHUMI Stop: 06/02/23 08:59 Enoxaparin Sodium (Enoxaparin Inj 40 Mg/0.4 Ml Syr) 40 mg SQ QAM BHUMI Stop: 06/02/23 08:59 Promethazine HCl 12.5 mg/ (Sodium Chloride) 50.5 mls @ 202 mls/hr IV Q6H PRN PRN Reason: Nausea And Vomiting Stop: 06/01/23 20:15 Lorazepam (Lorazepam 0.5 Mg Tab) 0.5 mg PO TID PRN PRN Reason: Anxiety Stop: 06/01/23 20:15 Morphine Sulfate (Morphine Sulfate 4 Mg/Ml 1 Ml Carp\Vial) 4 mg IV Q4H PRN PRN Reason: Pain Stop: 05/16/23 20:15 Nitroglycerin (Nitroglycerin Sl 0.4 Mg/Tab Tab) 0.4 mg SL Q5M PRN PRN Reason: Chest Pain Stop: 06/01/23 22:34 Oxycodone HCl (Oxycodone Hcl Ir 5 Mg Tab (Immediate Release)) 5 mg PO Q4H PRN PRN Reason: Pain Stop: 05/16/23 20:15
[2023-05-03] MEDS: ASPIRIN 81 MG ECTAB PO SCH (09:10)
[2023-05-03] MEDS: ENOXAPARIN INJ 40 MG/0.4 ML SYR SQ SCH (09:11)
--- NOTE | 2023-05-03 10:46 | Cardiology Consultation ---
Date of Consultation May 03, 2023 Assessment & Plan (1) Chest pain: (2) Elevated troponin: (3) Hyperlipidemia: (4) Hypothyroidism: (5) Obesity (BMI 35.0-39.9 without comorbidity): Plan 68-year-old male with history of hyperlipidemia but no prior documented cardiac disease presents with concerning symptoms of exertional chest tightness and shortness of breath. Echocardiogram with preserved LV function. EKG with nonspecific ST flattening. Troponins elevated with peak and decline Symptoms eased by nitroglycerin and aspirin in ER Discussed findings in detail with the patient would recommend investigating further with diagnostic coronary angiography. Patient tentatively scheduled for later today Underlying findings include hyperlipidemia, mild hypothyroidism possibly contributing to hyponatremia Cardiology will follow as clinical course progresses History of Present Illness Reason for Consultation: Exertional chest pressure shortness of breath, elevated troponin Requesting Physician: Dr. Lopez Attending Physician: Gerry Lopez MD History of Present Illness Patient is a 68-year-old male without prior history of cardiac disease but with history of hyperlipidemia who presents describing symptoms of exertional chest tightness and shortness of breath while walking. Symptoms were recurrent and resulted in ER presentation. Findings reflect elevation in troponin though without acute ST segment changes on EKG. Echocardiogram with normal LV Laboratory studies notable for hyponatremia and hypothyroidism Patient currently asymptomatic. Notes no history rheumatic fever scarlet fever TIA or stroke. No prior history of angina, congestive heart failure, renal or hepatic disease. No recent fevers chills or infections. Is making attempt to lose weight. 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 [employer] Non-smoker Allergies Allergy/AdvReac Type Severity Reaction Status Date / Time No Known Allergies Allergy Mild Unverified 05/02/23 19:22 Home Medications Medication Instructions Recorded Confirmed Type cholecalciferol (vitamin D3) 50 50 mcg PO DAILY 05/02/23 05/02/23 History mcg (2,000 unit) capsule (Vitamin D3) [id number] 1 cap PO DAILY 05/02/23 05/02/23 History oil 350 mg- 400 mg capsule Patient History Medical History Waterman's palsy Obesity (BMI 35.0-39.9 without comorbidity) Social History Smoking Status: Never smoker Preferred Language: [place] Current Living Situation: Family current occupational status: employed Feels Safe at Home: Yes Review of Systems Review of Systems: All systems reviewed & are unremarkable except as noted in HPI & below Physical Exam Constitutional: WD/WN, vitals as above + obese Eyes: PERRL, conjunctivae normal, anicteric sclerae ENMT: external ear and nose normal, oropharynx normal Neck: trachea midline, no thyromegaly Respiratory: normal respiratory effort, lungs clear to auscultation Cardiovascular: Rate/Rhythm: regular rate and regular rhythm Heart Sounds: normal S1 and normal S2; no gallop and no murmur Palpation: normal PMI Vessels: normal carotid upstroke and radial pulses present; no JVD and no carotid bruit Extremities: no edema Gastrointestinal (Abdomen): normal bowel sounds, soft, nontender, no hepatosplenomegaly Musculoskeletal: no cyanosis or clubbing, extremities motor strength 5/5 Skin: no rashes, warm and dry Neurologic: PERRL, EOMI, accommodation nl, no face palsy, no dysarthria Psychiatric: A+Ox3, euthymic affect Results & Data Vital Signs (Past 12 Hours) Vital Signs Pulse Pulse Resp BP Pulse Ox O2 Del Method 05/03/23 07:00 77 16 97 Room Air 05/03/23 06:00 62 22 133/47 L 96 Room Air 05/03/23 05:02 61 16 95/53 L 95 Room Air 05/03/23 04:00 73 19 151/71 H 96 Room Air 05/03/23 03:00 57 L 14 93/47 L 97 Room Air 05/03/23 02:00 57 L 14 126/64 95 Room Air 05/03/23 01:00 58 L 16 106/64 97 Room Air 05/03/23 00:00 62 15 111/48 L 95 Room Air 05/02/23 23:00 65 16 112/59 L 94 Room Air Laboratory Results Laboratory Results - last 24 hr 05/02/23 05/02/23 05/02/23 17:55 17:55 17:55 WBC 10.35 RBC 4.73 Hgb 15.6 Hct 43.0 MCV 90.9 MCH 33.0 MCHC 36.3 H RDW Std Deviation 40.3 RDW Coeff of Derrick 12.0 Plt Count 198 MPV 9.1 L Immature Gran % (Auto) 0.4 Neut % (Auto) 73.1 Lymph % (Auto) 16.4 [place] % (Auto) 6.8 Eos % (Auto) 2.8 Baso % (Auto) 0.5 Neut # (Auto) 7.57 H Lymph # (Auto) 1.70 [place] # (Auto) 0.70 H Eos # (Auto) 0.29 Baso # (Auto) 0.05 Immature Gran # (Auto) 0.04 PT 10.9 INR 1.0 APTT 27.9 PTT Ratio 1.0 Sodium 127 L Potassium 4.3 Chloride 92 L Carbon Dioxide 28 Anion Gap 7 BUN 13 Creatinine 0.85 Est Cr Clr Drug Dosing 82.0 Est GFR ( Amer) 103.0 Est GFR (Non-Af Amer) 88.9 BUN/Creatinine Ratio 15.3 Glucose 111 H Osmolality Calcium 9.0 Magnesium Total Bilirubin 0.6 AST 20 ALT 24 Alkaline Phosphatase 52 Troponin I High Sens 101.4 H* Total Protein 7.4 Albumin 4.7 Globulin 2.7 Albumin/Globulin Ratio 1.7 Triglycerides Cholesterol LDL Cholesterol, Calc VLDL Cholesterol, Calc HDL Cholesterol Cholesterol/HDL Ratio TSH Free T4 Urine Color Urine Appearance Urine pH Ur Specific [place] Urine Protein Urine Glucose (UA) Urine Ketones Urine Blood Urine Nitrite Urine Bilirubin Urine Urobilinogen Ur Leukocyte Esterase Urine Osmolality Ur Random Sodium 05/02/23 05/02/23 05/02/23 17:55 20:04 21:33 WBC RBC Hgb Hct MCV MCH MCHC RDW Std Deviation RDW Coeff of Derrick Plt Count MPV Immature Gran % (Auto) Neut % (Auto) Lymph % (Auto) [place] % (Auto) Eos % (Auto) Baso % (Auto) Neut # (Auto) Lymph # (Auto) [place] # (Auto) Eos # (Auto) Baso # (Auto) Immature Gran # (Auto) PT INR APTT PTT Ratio Sodium Potassium Chloride Carbon Dioxide Anion Gap BUN Creatinine Est Cr Clr Drug Dosing Est GFR ( Amer) Est GFR (Non-Af Amer) BUN/Creatinine Ratio Glucose Osmolality 269 L Calcium Magnesium 1.8 Total Bilirubin AST ALT Alkaline Phosphatase Troponin I High Sens 136.0 H* D Total Protein Albumin Globulin Albumin/Globulin Ratio Triglycerides Cholesterol LDL Cholesterol, Calc VLDL Cholesterol, Calc HDL Cholesterol Cholesterol/HDL Ratio TSH 9.871 H Free T4 0.49 L Urine Color Yellow Urine Appearance Clear Urine pH 7.0 Ur Specific [place] 1.005 Urine Protein Negative Urine Glucose (UA) Negative Urine Ketones Negative Urine Blood Negative Urine Nitrite Negative Urine Bilirubin Negative Urine Urobilinogen Negative Ur Leukocyte Esterase Negative Urine Osmolality Ur Random Sodium 05/02/23 05/02/23 05/03/23 21:33 21:33 01:19 WBC 7.51 RBC 4.17 L Hgb 13.8 L Hct 37.5 L MCV 89.9 MCH 33.1 MCHC 36.8 H RDW Std Deviation 39.1 RDW Coeff of Derrick 11.9 Plt Count 181 MPV 9.3 L Immature Gran % (Auto) 0.3 Neut % (Auto) 58.1 Lymph % (Auto) 27.0 [place] % (Auto) 9.9 Eos % (Auto) 4.3 Baso % (Auto) 0.4 Neut # (Auto) 4.37 Lymph # (Auto) 2.03 [place] # (Auto) 0.74 H Eos # (Auto) 0.32 Baso # (Auto) 0.03 Immature Gran # (Auto) 0.02 PT INR APTT PTT Ratio Sodium Potassium Chloride Carbon Dioxide Anion Gap BUN Creatinine Est Cr Clr Drug Dosing Est GFR ( Amer) Est GFR (Non-Af Amer) BUN/Creatinine Ratio Glucose Osmolality Calcium Magnesium Total Bilirubin AST ALT Alkaline Phosphatase Troponin I High Sens Total Protein Albumin Globulin Albumin/Globulin Ratio Triglycerides Cholesterol LDL Cholesterol, Calc VLDL Cholesterol, Calc HDL Cholesterol Cholesterol/HDL Ratio TSH Free T4 Urine Color Urine Appearance Urine pH Ur Specific [place] Urine Protein Urine Glucose (UA) Urine Ketones Urine Blood Urine Nitrite Urine Bilirubin Urine Urobilinogen Ur Leukocyte Esterase Urine Osmolality 131 L Ur Random Sodium 26 05/03/23 05/03/23 05/03/23 01:19 06:44 06:44 WBC RBC Hgb Hct MCV MCH MCHC RDW Std Deviation RDW Coeff of Derrick Plt Count MPV Immature Gran % (Auto) Neut % (Auto) Lymph % (Auto) [place] % (Auto) Eos % (Auto) Baso % (Auto) Neut # (Auto) Lymph # (Auto) [place] # (Auto) Eos # (Auto) Baso # (Auto) Immature Gran # (Auto) PT INR APTT PTT Ratio Sodium 129 L 132 L Potassium 3.8 Chloride 98 Carbon Dioxide 27 Anion Gap 4 BUN 11 Creatinine 0.80 Est Cr Clr Drug Dosing 87.2 Est GFR ( Amer) 105.6 Est GFR (Non-Af Amer) 91.1 BUN/Creatinine Ratio 13.8 Glucose 108 H Osmolality Calcium 8.6 Magnesium Total Bilirubin AST ALT Alkaline Phosphatase Troponin I High Sens 100.2 H* D 53.9 H* D Total Protein Albumin Globulin Albumin/Globulin Ratio Triglycerides 165 H Cholesterol 208 H LDL Cholesterol, Calc 143 VLDL Cholesterol, Calc 33 H HDL Cholesterol 32 Cholesterol/HDL Ratio 6.5 H TSH Free T4 Urine Color Urine Appearance Urine pH Ur Specific [place] Urine Protein Urine Glucose (UA) Urine Ketones Urine Blood Urine Nitrite Urine Bilirubin Urine Urobilinogen Ur Leukocyte Esterase Urine Osmolality Ur Random Sodium
[2023-05-03] MEDS ORDERED: HEPARIN (PORCINE) 1000 UNIT/ML 10 ML (CATH LAB USE ONLY) ONE (14:39)
[2023-05-03] MEDS ORDERED: niCARdipine HCL INJ 2.5 MG/ML 10 ML AMP ONE (14:39)
[2023-05-03] MEDS ORDERED: fentaNYL citrate PF 100 MCG/2 ML VIAL ONE ×2 (14:40→15:54)
[2023-05-03] MEDS ORDERED: MIDAZOLAM HCL 1 MG/ML 2ML VIAL ONE ×2 (14:41→15:44)
--- NOTE | 2023-05-03 15:10 | Pre Anesthesia Assessment ---
Date of Service May 03, 2023 Pre Sedation Assessment Vital Signs Temp Pulse Pulse Resp BP BP Pulse Ox 05/03/23 15:01 67 18 211/107 H 97 05/03/23 11:00 81 18 146/85 H 96 05/03/23 08:00 69 18 140/79 94 05/03/23 07:00 77 16 97 05/03/23 06:00 62 22 133/47 L 96 05/03/23 05:02 61 16 95/53 L 95 05/03/23 04:00 73 19 151/71 H 96 05/03/23 03:00 57 L 14 93/47 L 97 05/03/23 02:00 57 L 14 126/64 95 05/03/23 01:00 58 L 16 106/64 97 05/03/23 00:00 62 15 111/48 L 95 05/02/23 23:00 65 16 112/59 L 94 05/02/23 22:35 64 18 123/74 95 05/02/23 22:00 70 18 135/69 95 05/02/23 20:00 77 18 146/82 H 97 05/02/23 18:54 86 05/02/23 18:56 97 05/02/23 18:54 97 05/02/23 18:54 88 25 H 169/92 H 97 05/02/23 16:24 97.7 F 95 H 20 158/88 H 97 O2 Del Method 05/03/23 15:01 Room Air 05/03/23 11:00 Room Air 05/03/23 08:00 Room Air 05/03/23 07:00 Room Air 05/03/23 06:00 Room Air 05/03/23 05:02 Room Air 05/03/23 04:00 Room Air 05/03/23 03:00 Room Air 05/03/23 02:00 Room Air 05/03/23 01:00 Room Air 05/03/23 00:00 Room Air 05/02/23 23:00 Room Air 05/02/23 22:35 Room Air 05/02/23 22:00 Room Air 05/02/23 20:00 Room Air 05/02/23 18:54 05/02/23 18:56 Room Air 05/02/23 18:54 Room Air 05/02/23 18:54 Room Air 05/02/23 16:24 Room Air Cardiovascular RRR, no murmur, no edema Respiratory normal respiratory effort, lungs clear to auscultation Pre-Sedation Airway Assessment Smoking Status: Never smoker Hx Sleep Apnea: No Hx Difficult Intubation: No Short, Thick Neck: Yes Thyromental Distance: > or= 3.5 Finger Breadths Oral Cavity: + WNL Mallampati Class: III ASA: ASA3 NPO Status Date of Last Intake of Fluids: 05/02/23 Date of Last Intake of Solid Food: 05/02/23 Procedure Planning Contraindications for Sedation: none Current Medications Reviewed: Yes Notes The planned sedation has been discussed with the patient. Informed Consent was obtained. I have identified the patient, determined the appropriateness of sedation and have assessed the patient immediately prior to the procedure. All medicine(s) and interventions are by my order.
--- NOTE | 2023-05-03 16:11 | Electrocardiogram Report ---
Test Reason : Blood Pressure : / mmHG Vent. Rate : 089 BPM Atrial Rate : 089 BPM P-R Int : 186 ms QRS Dur : 072 ms QT Int : 336 ms P-R-T Axes : 050 -13 058 degrees QTc Int : 408 ms Normal sinus rhythm Inferior infarct , age undetermined Abnormal ECG When compared with ECG of 16-OCT-2020 10:22, Inferior infarct is now Present Confirmed by Yovani Rose ([id number]) on 05/03/2023 4:11:00 PM Referred By: REFERRED SELF Confirmed By:Yovani Rose
[2023-05-03] MEDS ORDERED: TICAGRELOR 90 MG TAB ONE (16:14)
--- NOTE | 2023-05-03 16:27 | Post Anesthesia Assessment ---
Date of Service May 03, 2023 Post Sedation Assessment Vital Signs Pulse Pulse Resp BP BP Pulse Ox O2 Del Method 05/03/23 15:01 67 18 211/107 H 97 Room Air 05/03/23 11:00 81 18 146/85 H 96 Room Air 05/03/23 08:00 69 18 140/79 94 Room Air 05/03/23 07:00 77 16 97 Room Air 05/03/23 06:00 62 22 133/47 L 96 Room Air 05/03/23 05:02 61 16 95/53 L 95 Room Air 05/03/23 04:00 73 19 151/71 H 96 Room Air 05/03/23 03:00 57 L 14 93/47 L 97 Room Air 05/03/23 02:00 57 L 14 126/64 95 Room Air 05/03/23 01:00 58 L 16 106/64 97 Room Air 05/03/23 00:00 62 15 111/48 L 95 Room Air 05/02/23 23:00 65 16 112/59 L 94 Room Air 05/02/23 22:35 64 18 123/74 95 Room Air 05/02/23 22:00 70 18 135/69 95 Room Air 05/02/23 20:00 77 18 146/82 H 97 Room Air 05/02/23 18:54 86 05/02/23 18:56 97 Room Air 05/02/23 18:54 97 Room Air 05/02/23 18:54 88 25 H 169/92 H 97 Room Air Recovery Score Activity: Moves 4 extremities Respiration: Deep Breath/Cough Circulation: +/-20% PreAnes Value Consciousness: Fully Awake Oxygen Saturation: O2 needed for >90% Discharge Sedation Level of Care: Fast Track Phase II Post Sedation Plan On clinical assessment, the patient appears to have tolerated the sedation without complications. Patient is recovering as anticipated. Patient will continue to be monitored by nursing and may be discharged when sedation discharge criteria are met per below protocol. Upon Completions of procedure up to 15 minutes continue every 5 minute vital signs and the P.A.R. score; then discharge to a Phase I or Fast Track to Phase II per the following guidelines: * Discharge Patient to appropriate Phase II area if PAR is 8 or greater or return to pre- procedure baseline. The post - procedure orders will be as directed. * If PAR score is less than 8 or not return to pre-procedure baseline then patient will follow Phase I monitoring till PAR is reached for Phase II. The Phase I may be done in procedure room or may call to secure a Phase I area. * If naloxone or flumazenil are used for reversal, hold in Phase I for continued monitoring from when last reversal dose was given for a minimum of 60 minutes or longer pending the nurse and/or physician discretion of patient condition before discharge to Phase II. Please call the Sedation Physician to re-evaluate and complete post-note for discharge to Phase II area. Do NOT discharge from procedure sedation or Phase 1 until post- sedation evaluation note is complete by procedure /sedation MD Sedation Discharge Instructions to be given to the patient at discharge to home.
--- NOTE | 2023-05-03 16:45 | Cardiac Catheterization ---
[facility] Data: Elevating Grader Operator Cardiac Status Clinical evaluation leading to the procedure CAD Presenation: Non STEMI Anginal Classification: CCS IV Diagnostic Physicians Name: Jose Mirza MD Closure Device Recommendations: PCI without planned CABG Cardiac Cath Procedure Full Procedure Date May 03, 2023 Pre-Procedure Diagnosis Pre-Procedure Diagnosis: Non STEMI AUC Score AUC Score: 8 Post-Procedure Diagnosis Post-Procedure Diagnosis: Severe CAD, Successful PCI and Normal Intracardiac Pressures Procedure(s) Performed Procedure(s) Performed: Coronary Angiography, Left Heart Cath and Drug Eluting Stent International Accounting Manager Jose Mirza MD Compensation Programs Manager(s) Showers Estimated Blood Loss Estimated Blood Loss: 15 Medication(s) Medication(s): Clopidogrel, Fentanyl, Heparin, Lidocaine 1%, Nicardipine, Nitroglycerin and Versed Summary of Findings Indication: NSTEMI Access: 6 Fr right radial artery Catheters: [place], diagnostic JR4, EBU 3.5 guide Findings: Left main: Normal caliber, 20 to 30% distal stenosis LAD: Medium caliber, 95% focal earlymid LAD stenosis just after takeoff of D1. Latemid segment with area of tortuosity/bridging. Remainder of vessel without significant disease. Medium caliber D1 bifurcates in the midsegment, medial branch of D1 with mild diffuse disease. Circumflex: Medium caliber, 40-50% mid segment disease extending into medium caliber OM 2. RCA: Dominant, 20 to 30% ostial, mid segment luminal regularities, distal 30-40% stenosis just before takeoff of PDA. Small RPDA without significant disease. LVEDP: 7 PCI of mid LAD: Left main cannulated with EBU 3.5 guide Preprocedure MELL flow 3 Buffing Machine Operator 50 wire navigated across mid LAD stenosis into distal vessel Mid LAD dilated with 2.5 balloon Mid LAD stented with 2.75 x 18 mm Xience drug-eluting stent beginning just after takeoff of D1 Stent postdilated with 3.0 NC IC vasodilators administered for spasm Post procedure angiography revealed no apparent complications, stent was well expanded with minimal residual stenosis. Summary: 1. Multivessel coronary artery disease 95% acute appearing earlymid LAD stenosis 20-30% distal LMCA 40-50% mid circumflex into OM 2 25% ostial, 30-40% distal RCA 2. Normal LV filling pressure (LVEDP 7). 3. Successful PCI of earlymid LAD with single drug-eluting stent (2.75 x 18 mm Xience; postdilated with 3.0 NC). Recommendations: To PCU for continued monitoring Loaded with ticagrelor 180 mg in Elevating Grader Operator Continue DAPT for at least 1 year. Continued ASCVD risk factor modification. Outpatient cardiac rehab Hemodynamics Rest Ao:: 116/70/99 Final Ao: 117/71/92 LV: 138/7 Recommendations Recommendations: PCI without planned CABG Specimens Specimens: None Radiation Exposure (mGy) 2712 Contrast (mls) 100 Anesthesia Moderate 7631-2097 Procedural Complication(s) None Disposition PCU I attest to the content of the Intraoperative Record and any orders documented therein. Any exceptions are noted below. [facility] Card Cath Procedure Codes Cardiac Catheterization Procedure 1: Cardiovascular Cath Procedures: 84365 Coronaries and LHC (+/-LV) Moderate Sedation Procedure 1: Sedation/Anesthesia: 53980 Mod Sedation by the same physician;Init15 Min Child Age 5 & Up Procedure 2: Sedation/Anesthesia: 60562 Mod Sedation by the same physician; Ea [id number] Minutes Stenting Procedure 1: Cardiovascular Stent Procedures: 86587 Perc transcatheter placement of intracoronary stent(s), with ang PG Care Time/CCT Total # of Minutes Spent Total Time Spent with Patient: Total time spent is greater than 50% in coordination of care (as documented) at patient's floor/unit and/or counseling patient:
[2023-05-03] MEDS: SODIUM CHLORIDE 0.9% 1,000 ML IV SCH (17:28)
[2023-05-04] MEDS: SODIUM CHLORIDE 0.9% 1,000 ML IV SCH (05:08)
[2023-05-04] MEDS ORDERED: LEVOTHYROXINE SODIUM 25 MCG TABLET PO SCH (06:30)
[2023-05-04 07:19] LABS: Hematocrit (blood only) 43.4 % (42.0-52.0); Hemoglobin 15.2 g/dl (14.0-18.0); Mean Corpuscular Hemoglobin 32.8 pg (25.0-34.0); Mean Corpuscular Volume 93.7 fL (80.0-100.0); Mean Platelet Volume 9.3 fL (9.4-12.4); Platelet Count 172 K/uL (130-400); RDW Coefficient of Variation 12.4 % (11.5-14.5); RDW Standard Deviation 42.6 fL (36.4-46.3); Red Blood Count 4.63 M/uL (4.70-6.10); White Blood Count 7.26 K/ul (4.8-10.8)
[2023-05-04 07:34] LABS: BUN Creatinine Ratio 12.6 (10-20); Calcium 9.2 mg/dl (8.6-10.3); Creatinine Clr Calc Pharmacy 78.5 ml/min; Est GFR (African American) 102.1 ml/min; Est GFR (Non-African American) 88.1 ml/min; Magnesium 1.9 mg/dl (1.7-2.4); Phosphorus 2.7 mg/dl (2.5-4.9); Potassium 4.2 mmol/L (3.5-5.1)
[2023-05-04] MEDS: ASPIRIN 81 MG ECTAB PO SCH (07:52)
[2023-05-04] MEDS: ENOXAPARIN INJ 40 MG/0.4 ML SYR SQ SCH (07:52)
--- NOTE | 2023-05-04 08:36 | Hospitalist Progress Note ---
Date of Service May 04, 2023 Assessment & Plan (1) Chest pain: Plan: Possibly from elevated BP Possible ACS given troponin elevation and relief with nitroglycerin NSTEMI PCU Echo LV is normal in size. Mild concentric LVH. The basal septum is thickened and angulated consistent with sigmoid septum. LV wall motion is normal. EF 60 to 65%. There is no significant valvular disease. Cardiology consulted -> pt went for cardiac cath (05/04/2003) Now s/p Successful PCI of earlymid LAD with single drug-eluting stent (2.75 x 18 mm Xience; postdilated with 3.0 NC). Multivessel coronary artery disease 95% acute appearing earlymid LAD stenosis 20-30% distal LMCA 40-50% mid circumflex into OM 2 25% ostial, 30-40% distal RCA Recommend : Continue DAPT for at least 1 year. Aspirin and Brilinta. Continued ASCVD risk factor modification. started on Lipitor 40 mg daily. Outpatient cardiac rehab Hyponatremia, possible SIADH given patient account of daily water intake of 2.5 L Sodium now 136 (from 129 ->133) Careful correction of sodium with NSS Cont. to monitor Hyperlipidemia, patient currently not on maintenance medications - started on statin SHERMAN status post surgery New onset hypothyroidism, TSH 9.87, Initiated levothyroxine 25 mcg daily, recheck TSH next month w/ PCP Past tobacco abuse DVT prophylaxis. Lovenox subcu Full code Admission and Anticipated Discharge Date Admission Date: May 02, 2023 Subjective Pt seen in follow up of chest pain, elev. troponin Pt took ASA, in ED s/p nitropaste Now s/p PCI to LAD Currently sitting up in bed, in no acute distress, denies any more chest pain Currently feeling comfortable, no shortness of breath either , no dizziness or palpitations He has been ambulating in hallway Seen by cardiology, plan to discharge home and follow up as outpt Review of Systems Review of Systems: All systems reviewed & are unremarkable except as noted in Subjective Physical Exam Physical Exam: GENERAL: obese M in NAD SKIN: Normal color, warm HEENT: NC/AT, [place] palpebral conjunctivae NECK : Supple, no tenderness CHEST : CTAB, no tenderness HEART : RRR, no obvious murmurs ABDOMEN: no distention, nontender, soft, + bowel sounds EXTREMITIES : No LE swelling/tenderness, no other conspicuous deformities noted NEUROLOGIC : Coherent, no facial asymmetry, speech fluent, answers appropriately, moves extremities Results & Data Results & Data Vital Signs (Past 12 Hours) Vital Signs Temp Pulse Resp BP Pulse Ox O2 Del Method 05/04/23 06:18 37.0 C 67 18 130/74 97 Room Air 05/04/23 04:05 36.6 C 70 18 146/94 H 99 Room Air 05/03/23 22:12 67 05/03/23 22:06 36.6 C 66 18 154/87 H 96 Room Air 05/03/23 21:12 75 20 149/87 H 97 Room Air Laboratory Results 05/04/23 05/04/23 05/03/23 Range/Units 06:38 06:38 16:08 WBC 7.26 (4.8-10.8) K/ul RBC 4.63 L (4.70-6.10) M/uL Hgb 15.2 (14.0-18.0) g/dl Hct 43.4 (42.0-52.0) % MCV 93.7 (80.0-100.0) fL MCH 32.8 (25.0-34.0) pg MCHC 35.0 (32.0-36.0) g/dL RDW Std Deviation 42.6 (36.4-46.3) fL RDW Coeff of Derrick 12.4 (11.5-14.5) % Plt Count 172 (130-400) K/uL MPV 9.3 L (9.4-12.4) fL Activ Coag Time Kaolin 311 H (94-140) SECONDS Sodium 136 (136-145) mmol/L Potassium 4.2 (3.5-5.1) mmol/L Chloride 104 (98-107) mmol/L Carbon Dioxide 27 (21-32) mmol/L Anion Gap 5 (3-11) BUN 11 (6-23) mg/dl Creatinine 0.87 (0.6-1.4) mg/dl Est Cr Clr Drug Dosing 78.5 ml/min Est GFR ( Amer) 102.1 ml/min Est GFR (Non-Af Amer) 88.1 ml/min BUN/Creatinine Ratio 12.6 (10-20) Glucose 99 (70-99(Fasting)) mg/dl Calcium 9.2 (8.6-10.3) mg/dl Phosphorus 2.7 (2.5-4.9) mg/dl Magnesium 1.9 (1.7-2.4) mg/dl 05/03/23 Range/Units 11:42 WBC (4.8-10.8) K/ul RBC (4.70-6.10) M/uL Hgb (14.0-18.0) g/dl Hct (42.0-52.0) % MCV (80.0-100.0) fL MCH (25.0-34.0) pg MCHC (32.0-36.0) g/dL RDW Std Deviation (36.4-46.3) fL RDW Coeff of Derrick (11.5-14.5) % Plt Count (130-400) K/uL MPV (9.4-12.4) fL Activ Coag Time Kaolin (94-140) SECONDS Sodium 133 L (136-145) mmol/L Potassium (3.5-5.1) mmol/L Chloride (98-107) mmol/L Carbon Dioxide (21-32) mmol/L Anion Gap (3-11) BUN (6-23) mg/dl Creatinine (0.6-1.4) mg/dl Est Cr Clr Drug Dosing ml/min Est GFR ( Amer) ml/min Est GFR (Non-Af Amer) ml/min BUN/Creatinine Ratio (10-20) Glucose (70-99(Fasting)) mg/dl Calcium (8.6-10.3) mg/dl Phosphorus (2.5-4.9) mg/dl Magnesium (1.7-2.4) mg/dl Medications Administered Current Inpatient Medications Acetaminophen (Acetaminophen 325 Mg Tab) 650 mg PO Q4H PRN PRN Reason: Pain or Fever Stop: 06/01/23 22:34 Aspirin (Aspirin 81 Mg Ectab) 81 mg PO DAILY [facility] Stop: 06/02/23 08:59 Last Admin: 05/04/23 07:52 Dose: 81 mg Atorvastatin Calcium (Atorvastatin 40 Mg Tab) 40 mg PO QAM [facility] Stop: 06/03/23 08:59 Last Admin: 05/04/23 07:52 Dose: 40 mg Enoxaparin Sodium (Enoxaparin Inj 40 Mg/0.4 Ml Syr) 40 mg SQ QAM [facility] Stop: 06/02/23 08:59 Last Admin: 05/04/23 07:52 Dose: 40 mg Promethazine HCl 12.5 mg/ (Sodium Chloride) 50.5 mls @ 202 mls/hr IV Q6H PRN PRN Reason: Nausea And Vomiting Stop: 06/01/23 20:15 Sodium Chloride (Nss) 1,000 mls @ 100 mls/hr IV .Q10H [facility] Last Admin: 05/04/23 05:08 Dose: Not Given Levothyroxine Sodium (Levothyroxine Sodium 25 Mcg Tablet) 25 mcg PO DAILYBB [facility] Stop: 06/03/23 06:29 Last Admin: 05/04/23 06:04 Dose: 25 mcg Lorazepam (Lorazepam 0.5 Mg Tab) 0.5 mg PO TID PRN PRN Reason: Anxiety Stop: 06/01/23 20:15 Morphine Sulfate (Morphine Sulfate 4 Mg/Ml 1 Ml Carp\Vial) 4 mg IV Q4H PRN PRN Reason: Pain Stop: 05/16/23 20:15 Nitroglycerin (Nitroglycerin Sl 0.4 Mg/Tab Tab) 0.4 mg SL Q5M PRN PRN Reason: Chest Pain Stop: 06/01/23 22:34 Oxycodone HCl (Oxycodone Hcl Ir 5 Mg Tab (Immediate Release)) 5 mg PO Q4H PRN PRN Reason: Pain Stop: 05/16/23 20:15 Ticagrelor (Ticagrelor 90 Mg Tab) 90 mg PO BID [facility] Stop: 06/03/23 08:59 Last Admin: 05/04/23 07:52 Dose: 90 mg
[2023-05-04] MEDS ORDERED: TICAGRELOR 90 MG TAB PO SCH (09:00)
[2023-05-04] MEDS ORDERED: ATORVASTATIN 40 MG TAB PO SCH (09:00)
--- NOTE | 2023-05-04 11:29 | Cardiology Progress Note ---
Date of Service May 04, 2023 Assessment & Plan (1) Crescendo angina: (2) Single vessel coronary artery disease: (3) Hyperlipidemia: (4) Status post insertion of drug-eluting stent into left anterior descending (LAD) artery: Plan Patient is a 68-year-old male who presented with exertional symptoms consistent with crescendo angina with mild elevation troponin/non-ST segment myocardial infarction Cardiac catheterization demonstrated moderate diffuse disease with single-vessel occlusive stenosis of the proximal left anterior descending Patient received drug-eluting stent uneventfully Plan: Stable for discharge today. Continue dual antiplatelet 6 to 12 months with aspirin and ticagrelor without interruption. Sublingual nitroglycerin prescription Lipid reduction as ordered with atorvastatin 40 mg/day Treat hypothyroidism Cardiac rehab referral Follow-up cardiology Nani Lemon 3 weeks Admission and Anticipated Discharge Date Admission Date: May 02, 2023 Subjective Patient seen and examined, chart, medications telemetry reviewed. Patient feels well ambulatory in hallway. No chest pain shortness of breath dizziness or lightheadedness. No edema. Right radial access site healing well. Telemetry with sinus bradycardia only. Review of Systems Review of Systems: All systems reviewed & are unremarkable except as noted in Subjective Physical Exam Constitutional: WD/WN, vitals as above Eyes: PERRL, conjunctivae normal, anicteric sclerae ENMT: external ear and nose normal, oropharynx normal Neck: trachea midline, no thyromegaly Respiratory: normal respiratory effort, lungs clear to auscultation Cardiovascular: Rate/Rhythm: regular rate and regular rhythm Heart Sounds: normal S1 and normal S2; no gallop and no murmur Palpation: normal PMI Vessels: normal carotid upstroke and radial pulses present (Access site healing well); no JVD and no carotid bruit Extremities: no edema Gastrointestinal (Abdomen): normal bowel sounds, soft, nontender, no hepatosplenomegaly Musculoskeletal: no cyanosis or clubbing, extremities motor strength 5/5 Skin: no rashes, warm and dry Neurologic: PERRL, EOMI, accommodation nl, no face palsy, no dysarthria Psychiatric: A+Ox3, euthymic affect Results & Data Vital Signs (Past 12 Hours) Vital Signs Temp Pulse Pulse Resp BP Pulse Ox O2 Del Method 05/04/23 09:00 54 L 05/04/23 09:19 Room Air 05/04/23 06:18 37.0 C 67 18 130/74 97 Room Air 05/04/23 04:05 36.6 C 70 18 146/94 H 99 Room Air Laboratory Results Laboratory Results - last 24 hr 05/03/23 05/03/23 05/04/23 11:42 16:08 06:38 WBC 7.26 RBC 4.63 L Hgb 15.2 Hct 43.4 MCV 93.7 MCH 32.8 MCHC 35.0 RDW Std Deviation 42.6 RDW Coeff of Derrick 12.4 Plt Count 172 MPV 9.3 L Activ Coag Time Kaolin 311 H Sodium 133 L Potassium Chloride Carbon Dioxide Anion Gap BUN Creatinine Est Cr Clr Drug Dosing Est GFR ( Amer) Est GFR (Non-Af Amer) BUN/Creatinine Ratio Glucose Calcium Phosphorus Magnesium 05/04/23 06:38 WBC RBC Hgb Hct MCV MCH MCHC RDW Std Deviation RDW Coeff of Derrick Plt Count MPV Activ Coag Time Kaolin Sodium 136 Potassium 4.2 Chloride 104 Carbon Dioxide 27 Anion Gap 5 BUN 11 Creatinine 0.87 Est Cr Clr Drug Dosing 78.5 Est GFR ( Amer) 102.1 Est GFR (Non-Af Amer) 88.1 BUN/Creatinine Ratio 12.6 Glucose 99 Calcium 9.2 Phosphorus 2.7 Magnesium 1.9
--- NOTE | 2023-05-04 12:08 | Discharge Summary ---
Date of Service May 04, 2023 Admission HPI Per Admitting Provider History obtained from patient and records. Medical history significant for hyperlipidemia, SHERMAN status post surgery, history of Waterman's palsy, past tobacco abuse. Few days ago, patient noted intermittent substernal pressure somewhat squeezing with some radiation to the left arm. Some lightheadedness without headache symptoms. Somewhat worse on exertion. No cough symptoms. Some neck pain. No recent trauma. Patient took some aspirin today with persistent symptoms. Chest discomfort improved with Nitropaste administration at the ER. Highest SBP at the ER 160s. 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 Admission Exam Per Admitting Provider GENERAL: Comfortable, pleasant, obese, no respiratory distress SKIN: Normal color, warm HEENT: Bespectacled, [place] palpebral conjunctivae, no ptosis, dry buccal mucosa NECK : Supple, short neck, no tenderness CHEST : CTA, no tenderness HEART : RRR, no obvious murmurs ABDOMEN: Some distention, nontender EXTREMITIES : No LE swelling/tenderness, no other conspicuous deformities noted NEUROLOGIC : Coherent, no facial asymmetry, no other gross focality Principal Diagnosis NSTEMI, chest pain Hyponatremia Discharge Exam GENERAL: obese M in NAD SKIN: Normal color, warm HEENT: NC/AT, [place] palpebral conjunctivae NECK : Supple, no tenderness CHEST : CTAB, no tenderness HEART : RRR, no obvious murmurs ABDOMEN: no distention, nontender, soft, + bowel sounds EXTREMITIES : No LE swelling/tenderness, no other conspicuous deformities noted NEUROLOGIC : Coherent, no facial asymmetry, speech fluent, answers appropriately, moves extremities Discharge Data Allergies Allergy/AdvReac Type Severity Reaction Status Date / Time No Known Allergies Allergy Mild Unverified 05/02/23 19:22 Consultations 05/02/23 19:19 ED Decision to Admit Stat 05/03/23 08:42 Consult Cardiology Routine 05/04/23 11:32 Consult Cardiac Rehabilitation Routine Procedures Performed Operation Date: 05/03/23 14:00 Actual Procedures s Cineradiography w/Routine Exam - Jose Mirza MD p Cath, Left with Cors and Vent - Jose Mirza MD p Drug Eluting Stent SGl Vessel - Jose Mirza MD Ordered Studies 05/03/23 11:09 CL Cath Imgs for PACS use only Urgent Hospital Course (1) Chest pain: NSTEMI PCU Echo LV is normal in size. Mild concentric LVH. The basal septum is thickened and angulated consistent with sigmoid septum. LV wall motion is normal. EF 60 to 65%. There is no significant valvular disease. Cardiology consulted -> pt went for cardiac cath (05/04/2003) Now s/p Successful PCI of earlymid LAD with single drug-eluting stent (2.75 x 18 mm Xience; postdilated with 3.0 NC). Multivessel coronary artery disease 95% acute appearing earlymid LAD stenosis 20-30% distal LMCA 40-50% mid circumflex into OM 2 25% ostial, 30-40% distal RCA Recommend : Continue DAPT for at least 1 year. Aspirin and Brilinta. Continued ASCVD risk factor modification. started on Lipitor 40 mg daily. Outpatient cardiac rehab Hyponatremia, possible SIADH given patient account of daily water intake of 2.5 L Sodium now 136 (from 129 ->133) Careful correction of sodium with NSS Cont. to monitor Hyperlipidemia, patient currently not on maintenance medications - started on statin SHERMAN status post surgery New onset hypothyroidism, TSH 9.87, Initiated levothyroxine 25 mcg daily, recheck TSH next month w/ PCP Past tobacco abuse Total Time Total Time Spent Total Time Spent (In Minutes): 40 Discharge Plan Discharge Items Patient Disposition: Home - Self-Care Reason For Visit: CP, HYPONATREMIA Discharge Diagnosis: NSTEMI, chest pain Hyponatremia Activity: Per Instructions section Non-emergency contact: Primary Care Provider and Slag Production Worker Call non-emergency contact if: you have any medication questions and your symptoms worsen Follow-up/Referrals: Yon Longoria MD [Physician] - (The Cardiology office will contact you for an appointment.) Ella Archuleta MD [Primary Care Provider] - (Date & Time 05/09/2023 2:00 PM Provider Ella Archuleta MD Department General Internal Medicine [facility] ) Diet: Heart Healthy Addtl Attending Provider Instructions: Follow up with your primary care doctor within 1 week. The appointment was scheduled for you for May 09. You will need to follow up with cardiology in 2-3 weeks - you will be contacted about the appointment. Take aspirin daily and and Brilinta twice a day as prescribed. You will need to stay on this medication for 6-12 months. Also take lipitor 40 mg daily (for cholesterol). You were started on levothyroxine 25 mcg daily - for your thyroid. You will need to follow up with your primary care provider regarding your thyroid. Pending Studies at Discharge: No Stand-Alone Forms: My [facility] [employer], Smoking Cessation Medications and DC Order Prescriptions: New Brilinta 90 mg Tablet 90 mg PO BID 30 Days Qty: 60 0RF atorvastatin 40 mg Tablet 40 mg PO QAM Qty: 30 0RF nitroglycerin [Nitrostat] 0.4 mg Tablet, Sublingual 0.4 mg sublingual Q5M PRN (Reason: chest pain) Qty: 5 0RF aspirin 81 mg Tablet,Delayed Release (Dr/Ec) 81 mg PO DAILY Qty: 30 0RF levothyroxine [Synthroid] 25 mcg Tablet 25 mcg PO DAILYBB Qty: 30 0RF Continued cholecalciferol (vitamin D3) [Vitamin D3] 50 mcg (2,000 unit) Capsule 50 mcg PO DAILY Discontinued [place] 3 350-400 mg Capsule 1 cap PO DAILY Discharge Orders: Discharge Order (Routine); Ordered 05/04/23 Ordered By: Gerry Lopez Admission Data Admit Date/Time: 05/02/23 20:14 Attending Provider: Gerry Lopez Admit Provider: Tirso Davis Primary Care Provider: Ella Archuleta Other Providers: Tirso Davis ; Yon Longoria
--- NOTE | 2023-05-04 12:24 | Electrocardiogram Report ---
Test Reason : Blood Pressure : / mmHG Vent. Rate : 073 BPM Atrial Rate : 073 BPM P-R Int : 186 ms QRS Dur : 080 ms QT Int : 362 ms P-R-T Axes : 064 -03 063 degrees QTc Int : 398 ms Normal sinus rhythm Possible Inferior infarct (cited on or before 02-MAY-2023) Abnormal ECG When compared with ECG of 02-MAY-2023 17:55, Nonspecific T wave abnormality now evident in Anterior leads Confirmed by Yovani Rose ([id number]) on 05/04/2023 12:23:44 PM Referred By: REFERRED SELF Confirmed By:Yovani Rose
== END 2023-05-04 12:38 | disposition home or self-care (01) | DRG 322 ==
LOC: ED 16:22 → EDINP 20:14 → INTOOBSV 20:14 → EDINP 05-03 14:54 → 2E 05-03 17:02